=== PATIENT | female | born 1985 | race African-American/Black ===

== ENCOUNTER 2016-06-25 19:12 | Emergency (ER) | payer OTHER ==
[2016-06-25 19:36] VITALS: TEMP 98.2
[2016-06-25] MEDS ORDERED: CARBAMIDE PEROXIDE 15 ML BOTTLE RTEAR ONE (19:54)
[2016-06-25] MEDS ORDERED: OXYCODONE/APAP 5/325 TAB PO ONE (19:55)
[2016-06-25] MEDS ORDERED: AMOXICILLIN/CLAVULANATE POT 875/125 MG TAB PO ONE (21:49)
--- NOTE | 2016-06-25 21:54 | UCPHY ---
H & P Time Seen by Provider: 06/25/16 19:37 Patient Type: Established HPI/ROS: This patient was seen earlier today the her Internal Medicine physician's office for left ear pain found have otitis externa and cerumen impaction. She started on polymyxin with hydrocortisone drops and reports worsening of deep ear pain since that time. Attempt was made to remove cerumen with a mild abrasion to the ear but she feels like the ear pain is actually inner ear radiating to her jaw. She took 800 mg of ibuprofen prior to arrival the took her pain from 8/10 to 5/10 currently. Symptoms increased with chewing. No other exacerbating factors. She has diminished hearing in the affected right ear and no other associated symptoms. ROS: Constitutional: No fevers or other complaints. HEENT No recent URI symptoms or other HEENT complaints. Neuro: No headache. No confusion. No neck stiffness. 7 point ROS is otherwise negative Past Medical/Surgical History: Otherwise healthy Smoking Status: Never smoked Physical Exam: Physical Exam Vital signs are normal. General: Pleasant female No acute distress HEENT: Nose: Clear discharge bilaterally. No sinus tenderness to percussion. Ears: Left external canal is small in diameter of with no evidence of erythema or exudates. Tympanic membrane is normal. Right external canal- swollen with erythema, exudate cerumen. TM is not visible. No mastoid tenderness. Oropharynx: No erythema or exudates. No dysphonia. No drooling or stridor. Eyes: Pupils equal and react to light. Extraocular motions are intact. Neck: Supple with no meningismus Lungs: No respiratory distress Cardiac: Cap refill intact throughout Skin: No rash or pallor. Neuro: Alert with no focal deficits noted. Initial differential diagnosis: Otitis externa, cerumen impaction, otitis media , om with perforation Constitutional: Initial Vital Signs Temperature (C) 36.8 C 06/25/16 19:32 Heart Rate 100 06/25/16 19:32 Respiratory Rate 18 06/25/16 19:32 Blood Pressure 139/101 H 06/25/16 19:32 O2 Sat (%) 99 06/25/16 19:32 O2 Delivery Mode Room Air Allergies/Adverse Reactions: cefaclor [From [facility]] Allergy (Verified 06/25/16 19:31) Home Medications: Medication Instructions Recorded Amox Tr/K Clav (Augmentin) 500 mg PO TID #30 tab 06/25/16 [Augmentin 500/125 MG TAB (*)] oxyCODONE/APAP 5/325 [Percocet 1 - 2 tab PO Q4-6PRN PRN #12 tab 06/25/16 5/325 (*)] Medical Decision Making ED Course/Re-evaluation: Percocet for pain control followed by Debrox with irrigation by our tech with a total 3 L saline with minimal cerumen removed. Patient tolerated this without distress. I then placed awake inner ear and treated her with her antibiotic drops. I spoke with Dotty [id number] practitioner for Dr. Melendrez-ENT. They will see her in the office on Thursday to pull the wick and recheck the ear. She agrees with the plan is start the patient on Augmentin. Patient is treated with 1st dose of Augmentin 875 to cover for potential associated otitis media. - Data Points Medications Given: Discontinued Medications Amoxicillin/Clavulanate Potassium (Augmentin 875mg) 875 mg PO EDNOW ONE PRN Reason: Protocol Stop: 06/25/16 21:50 Last Admin: 06/25/16 22:13 Dose: 875 mg Carbamide Peroxide (Debrox) 5 drop RTEAR EDNOW ONE Stop: 06/25/16 19:55 Last Admin: 06/25/16 20:06 Dose: 5 drops Oxycodone/Acetaminophen (Percocet 5/325) 1 tab PO EDNOW ONE Stop: 06/25/16 19:56 Last Admin: 06/25/16 20:06 Dose: 1 tab Oxycodone/Acetaminophen (Percocet 5/325mg Prepack#4) 1 btl TAKEHOME EDNOW ONE Stop: 06/25/16 22:03 Last Admin: 06/25/16 22:13 Dose: 1 btl Departure - Departure Disposition: Home, Routine, Self-Care Clinical Impression: Otalgia of right ear Otitis externa Qualifiers: Otitis externa type: unspecified type Laterality: right Chronicity: acute Qualified Code(s): H60.501 - Unspecified acute noninfective otitis externa, right ear Condition: Good Instructions: Oxycodone/Acetaminophen (By mouth), Otitis Externa (ED) Additional Instructions: Diagnosis: Otitis externa 2. Otalgia 3. Cerumen impaction Plan: Use the antibiotic drops in her ear as prescribed. Ibuprofen and Tylenol or Percocet for pain as needed. No driving, alcohol or come Percocet Augmentin antibiotic. Call Dr. Melendrez-ear nose throat physician tomorrow to arrange follow-up appointment for Thursday to pull the whick and re-check the ear Referrals: Valerie Saavedra DO [Primary Care Provider] - As per Instructions Nayeli Melendrez MD [Medical Doctor] - As per Instructions Prescriptions: Amox Tr/K Clav (Augmentin) [Augmentin 500/125 MG TAB (*)] 500 mg PO TID #30 tab oxyCODONE/APAP 5/325 [Percocet 5/325 (*)] 1 - 2 tab PO Q4-6PRN PRN #12 tab PRN Reason: Pain - PQRS PQRS Measurement: NA
[2016-06-25] MEDS ORDERED: OXYCODONE/APAP 5/325MG PREPACK#4 BTL TAKEHOME ONE (22:02)
[2016-06-25 22:16] VITALS: BP 116/56; PULSE 84; RESP 16; O2SAT 96
== END 2016-06-25 22:16 | disposition home or self-care (01) ==
LOC: CED 19:12
PROC: 3E1B78Z Irrigation of Ear using Irrigating Substance, Via Natural or Artificial Opening (ICD-10-PCS; principal; 2016-06-25)
DX: H92.01 Otalgia, right ear (principal); H60.501 Unspecified acute noninfective otitis externa, right ear; H61.21 Impacted cerumen, right ear
CPT/HCPCS: 69210-PO; 99214-PO; G0463-PO